=== PATIENT | male | born 1995 | race Caucasian/White ===

== ENCOUNTER 2018-03-13 15:33 | Emergency (ER) | payer OTHER, MEDICAID ==
--- NOTE | 2018-03-13 17:16 | ER Document Report ---
ED Medical Screen (RME) - General Chief Complaint: Abdominal Pain Stated Complaint: ABDOMINAL PAIN Time Seen by Provider: 03/13/18 16:24 TRAVEL OUTSIDE OF THE [place] IN LAST 30 DAYS: No - Related Data Allergies/Adverse Reactions: No Known Allergies Allergy (Verified 03/13/18 16:21) Past Medical History - Social History Chew tobacco use (# tins/day): No Frequency of alcohol use: None Drug Abuse: None - Past Medical History Cardiac Medical History: Denies: Hx Coronary Artery Disease, Hx Heart Attack, Hx Hypertension Pulmonary Medical History: Reports: Hx Asthma - inhalers if needed Denies: Hx Bronchitis, Hx COPD, Hx Pneumonia Neurological Medical History: Denies: Hx Cerebrovascular Accident, Hx Seizures Renal/ Medical History: Denies: Hx Peritoneal Dialysis Musculoskeltal Medical History: Denies Hx Arthritis Past Surgical History: Reports: Hx Orthopedic Surgery - Immunizations Immunizations up to date: Yes Hx Diphtheria, Pertussis, Tetanus Vaccination: Yes Physical Exam - Vital signs Vitals: Pulse Resp BP Pulse Ox 84 22 H 134/97 H 98 03/13/18 15:43 03/13/18 15:43 03/13/18 15:43 03/13/18 15:43 Course - Re-evaluation Re-evalutation: 03/13/18 19:20 23-year-old man with profound delay as a result of cerebral palsy as a child. Plan for this child to undergo CT imaging of the abdomen and pelvis as he does have tenderness in the right lower quadrant suggestive of potential appendicitis. I have seen and performed a rapid medical screening examination on this patient. This patient will require further evaluation and disposition determination by a secondary provider. - Vital Signs Vital signs: Temp Pulse Resp BP Pulse Ox 84 22 H 134/97 H 98 03/13/18 15:43 03/13/18 15:43 03/13/18 15:43 03/13/18 15:43 - Laboratory Result Diagrams: 03/13/18 17:05 03/13/18 17:05 Laboratory results interpreted by me: 03/13/18 17:05 Sodium 145.3 H Potassium 5.4 H Carbon Dioxide 32 H Total Protein 8.3 H Doctor's Discharge - Discharge Referrals: CHANDANA NGO MD [Primary Care Provider] - Follow up as needed
[2018-03-13 17:34] LABS: ABSOLUTE EOSINOPHILS # (AUTO) 0.3 10^3/uL (0.0-0.6); ABSOLUTE LYMPHOCYTES (AUTO) 1.7 10^3/uL (0.5-4.7); ABSOLUTE MONOCYTES (AUTO) 0.8 10^3/uL (0.1-1.4); ABSOLUTE NEUT (AUTO) 4.9 10^3/uL (1.7-8.2); BASOPHILS % (AUTO) 0.3 % (0-2); EOSINOPHILS % (AUTO) 3.9 % (0-6); HEMATOCRIT 43.8 % (37.9-51.0); HEMOGLOBIN 15.1 g/dL (13.5-17.0); LYMPHOCYTES % (AUTO) 22.5 % (13-45); MEAN CORPUSCULAR HEMOGLOBIN 31.1 pg (27.0-33.4); MEAN CORPUSCULAR HGB CONC 34.5 g/dL (32.0-36.0); MEAN CORPUSCULAR VOLUME 90 fl (80-97); MONOCYTES % (AUTO) 10.6 % (3-13); PLATELET COUNT 240 10^3/uL (150-450); RED BLOOD COUNT 4.85 10^6/uL (4.35-5.55); RED CELL DISTRIBUTION WIDTH 12.7 % (11.5-14.0); SEGMENTED NEUTROPHILS % (AUTO) 62.7 % (42-78); TOTAL CELLS COUNTED % (AUTO) 100 %; WHITE BLOOD COUNT 7.8 10^3/uL (4.0-10.5)
[2018-03-13 17:56] LABS: ALANINE AMINOTRANSFERASE 27 U/L (21-72); ALBUMIN 4.8 g/dL (3.5-5.0); ALKALINE PHOSPHATASE 88 U/L (38-126); ANION GAP 13 (5-19); ASPARTATE AMINO TRANSFERASE 29 U/L (17-59); BILIRUBIN,DIRECT 0.3 mg/dL (0.0-0.4); BILIRUBIN,TOTAL 0.6 mg/dL (0.2-1.3); BLOOD UREA NITROGEN 15 mg/dL (7-20); CALCIUM 10.1 mg/dL (8.4-10.2); CARBON DIOXIDE 32 mmol/L (22-30); CHLORIDE 100 mmol/L (98-107); GLUCOSE 90 mg/dL (75-110); LIPASE 49.9 U/L (23-300); POTASSIUM 5.4 mmol/L (3.6-5.0); SODIUM 145.3 mmol/L (137-145); TOTAL PROTEIN 8.3 g/dL (6.3-8.2)
[2018-03-13] MEDS ORDERED: DIAZEPAM INJ 10 MG/2 ML DISP.SYRIN IV ONE (19:08)
--- NOTE | 2018-03-13 19:47 | RADIOLOGY REPORT (SQ) ---
EXAM DESCRIPTION: CT ABD/PELVIS WITH IV ORAL COMPLETED DATE/TIME: 03/13/2018 7:30 pm REASON FOR STUDY: concern for appendicitis COMPARISON: None. TECHNIQUE: CT scan of the abdomen and pelvis performed using helical scanning technique with dynamic intravenous contrast injection. No oral contrast. Images reviewed with lung, soft tissue, and bone windows. Reconstructed coronal and sagittal MPR images reviewed. Delayed images for evaluation of the urinary system also acquired. All images stored on PACS. All CT scanners at this facility use dose modulation, iterative reconstruction, and/or weight based d osing when appropriate to reduce radiation dose to as low as reasonably achievable (ALARA). [facility]: Dose Right [facility]: CareDose [facility]: Dose Right [facility]: Teradose 4D [facility]: [employer] CONTRAST TYPE AND DOSE: contrast/concentration: Isovue 350.00 mg/ml; Total Contrast Delivered: 61.0 ml; Total Saline Delivered: 65.0 ml RENAL FUNCTION: BUN 15; creatinine 0.62 RADIATION DOSE: CT Rad equipment meets quality standard of care and radiation dose reduction techniq ues were employed. CTDIvol: 5.9 - 7.9 mGy. DLP: 812 mGy-cm.. LIMITATIONS: Patient motion artifact and overlapping extremities. FINDINGS: LOWER CHEST: No significant findings. No nodules or infiltrates. LIVER: Normal size. No masses. No dilated ducts. SPLEEN: Normal size. No focal lesions. PANCREAS: No masses. No significant calcifications. No adjacent inflammation or peripancreatic fluid collections. Pancreatic duct not dilated. GALLBLADDER: No identified stones by CT criteria. No inflammatory changes to suggest cholecystitis. ADRENAL GLANDS: No significant masses or asymmetry. RIGHT KIDNEY AND URETER: No solid masses. Nonobstructing nephroliths are present. No hydronephros is or hydroureter. LEFT KIDNEY AND URETER: No solid masses. Nonobstructing nephroliths are present. No hydronephrosi s or hydroureter. AORTA AND VESSELS: No aneurysm. No dissection. Renal arteries, SMA, celiac without stenosis. RETROPERITONEUM: No retroperitoneal adenopathy, hemorrhage or masses. BOWEL AND PERITONEAL CAVITY: No masses or inflammatory changes. No free fluid or peritoneal masses. APPENDIX: Not visualized. PELVIS: No mass. No free fluid. Normal bladder. ABDOMINAL WALL: No masses. No hernias. BONES: No significant or acute findings. OTHER: ORIF of the hips. Diffusely diminished mineralization. IMPRESSION: Examination limited by patient motion and beam hardening artifact from overlapping extre mities. While the appendix is not discretely identified, no pericecal inflammatory changes are demon strated to suggest a developing appendicitis. TECHNICAL DOCUMENTATION: JOB ID: [id number] Quality ID # [id number]: Final reports with documentation of one or more dose reduction techniques (e.g., Au tomated exposure control, adjustment of the mA and/or kV according to patient size, use of iterative reconstruction technique) 2010 [employer]- All Rights Reserved Reading location - IP/workstation name: [email or web address]
--- NOTE | 2018-03-13 20:47 | ER Document Report ---
ED General - General Chief Complaint: Abdominal Pain Stated Complaint: ABDOMINAL PAIN Time Seen by Provider: 03/13/18 16:24 Mode of Arrival: Wheelchair Information source: Patient, Parent Notes: This is a 23-year-old man with cerebral palsy that is brought in to the emergency room because of some abdominal pain. Patient's family states he ate a lot of food last night and started to have some discomfort today which is persisted. They report some nausea without vomiting. The patient is able to communicate and will answer yes or no questions. He is currently on no medicines. TRAVEL OUTSIDE OF THE [place] IN LAST 30 DAYS: No - HPI Onset: This morning Onset/Duration: Gradual Quality of pain: Dull Severity: Mild Pain Level: 1 Associated symptoms: denies: Chest pain, Fever, Nausea, Vomiting, Shortness of breath Exacerbated by: Denies Relieved by: Denies Similar symptoms previously: No Recently seen / treated by doctor: No - Related Data Allergies/Adverse Reactions: No Known Allergies Allergy (Verified 03/13/18 16:21) Past Medical History - General Information source: Patient - Social History Smoking Status: Never Smoker Cigarette use (# per day): No Chew tobacco use (# tins/day): No Frequency of alcohol use: None Drug Abuse: None Lives with: Family Family History: Reviewed & Not Pertinent Patient has suicidal ideation: No Patient has homicidal ideation: No - Past Medical History Cardiac Medical History: Denies: Hx Coronary Artery Disease, Hx Heart Attack, Hx Hypertension Pulmonary Medical History: Reports: Hx Asthma - inhalers if needed Denies: Hx Bronchitis, Hx COPD, Hx Pneumonia Neurological Medical History: Denies: Hx Cerebrovascular Accident, Hx Seizures Renal/ Medical History: Denies: Hx Peritoneal Dialysis Musculoskeletal Medical History: Denies Hx Arthritis Past Surgical History: Reports: Hx Orthopedic Surgery - Immunizations Immunizations up to date: Yes Hx Diphtheria, Pertussis, Tetanus Vaccination: Yes Review of Systems - Review of Systems Constitutional: denies: Chills, Fever EENT: No symptoms reported Cardiovascular: No symptoms reported Respiratory: No symptoms reported Gastrointestinal: See HPI Genitourinary: No symptoms reported Male Genitourinary: No symptoms reported Musculoskeletal: No symptoms reported Skin: No symptoms reported Hematologic/Lymphatic: No symptoms reported Neurological/Psychological: No symptoms reported Physical Exam - Vital signs Vitals: Pulse Resp BP Pulse Ox 84 22 H 134/97 H 98 03/13/18 15:43 03/13/18 15:43 03/13/18 15:43 03/13/18 15:43 Notes: Physical exam: GENERAL: Patient is sitting in wheelchair, he is smiling, no distress. He does answer yes or no questions. He denies pain at this time. HEAD: Atraumatic, normocephalic. EYES: Pupils equal round and reactive to light, extraocular movements intact, sclera anicteric, conjunctiva are normal. ENT: TMs normal, nares patent, oropharynx clear without exudates. Moist mucous membranes. NECK: Normal range of motion, supple without obvious mass or JVD. LUNGS: Breath sounds clear to auscultation bilaterally and equal. No wheezes rales or rhonchi. HEART: Regular rate and rhythm without murmurs, rubs or gallops. ABDOMEN: Soft, normoactive bowel sounds. No tenderness to palpation. No guarding, no rebound. No masses appreciated. Testes x2, nontender, no swelling. EXTREMITIES: Normal range of motion, no pitting or edema. No clubbing or cyanosis. NEUROLOGICAL: Cranial nerves II through XII grossly intact. Normal speech, moving all extremities. PSYCH: Normal mood, normal affect. SKIN: Warm, Dry, normal turgor, no rashes or lesions noted. Course - Vital Signs Vital signs: Temp Pulse Resp BP Pulse Ox 106 H 16 119/71 97 03/13/18 20:54 03/13/18 20:54 03/13/18 20:54 03/13/18 20:54 - Laboratory Result Diagrams: 03/13/18 17:05 03/13/18 17:05 Laboratory results interpreted by me: 03/13/18 17:05 Sodium 145.3 H Potassium 5.4 H Carbon Dioxide 32 H Total Protein 8.3 H Discharge - Discharge Clinical Impression: Abdominal pain Condition: Stable Disposition: HOME, SELF-CARE Instructions: Abdominal Pain ([facility]) Additional Instructions: As we discussed, the CT scan of the abdomen showed no inflammation over the area of the appendix. This is good. Let us do this the blood work looked good and the white count was normal. The plan at this point would be to just take it easy over the next few days: Watch and wait. I would follow-up with Dr. Ngo: Bring a copy of today's labs and CT report with you when you go. Return to the emergency room for fever (temperature greater than 100.5), worsening pain or concerns that Rell looks worse. In this case, he will need to be reassessed. Referrals: CHANDANA NGO MD [Primary Care Provider] - Follow up in 3-5 days
[2018-03-13 21:11] VITALS: BP 119/71
== END 2018-03-13 21:10 | disposition home or self-care (01) ==
LOC: ER 15:33
DX: R10.9 Unspecified abdominal pain (principal)
CPT/HCPCS: 99284; 96374; 36415; 83690; 85025; 80053; 74177; J3360

== ENCOUNTER 2018-03-15 14:41 | Emergency (ER) | payer OTHER, MEDICAID ==
[2018-03-15] MEDS ORDERED: DICYCLOMINE HCL INJ 20 MG/2 ML AMPULE IM ONE (15:43)
--- NOTE | 2018-03-15 15:45 | ER Document Report ---
ED Medical Screen (RME) - General Chief Complaint: Flank Pain Stated Complaint: PAIN IN RIGHT SIDE Time Seen by Provider: 03/15/18 15:42 Notes: 23 years old male with cerebral palsy was brought in today again. He was here 2 days ago. He is continuously having pain over the right lower quadrant. He had a CAT scan done Monday with no acute finding. He did not have any fever chills or other constitutional symptoms. No nausea vomiting. On examination-palpable stools all along the right side of the abdomen as well as left lower quadrant. TRAVEL OUTSIDE OF THE [place] IN LAST 30 DAYS: No - Related Data Allergies/Adverse Reactions: No Known Allergies Allergy (Verified 03/15/18 14:45) Past Medical History - Social History Chew tobacco use (# tins/day): No Frequency of alcohol use: None Drug Abuse: None - Past Medical History Cardiac Medical History: Denies: Hx Coronary Artery Disease, Hx Heart Attack, Hx Hypertension Pulmonary Medical History: Reports: Hx Asthma - inhalers if needed Denies: Hx Bronchitis, Hx COPD, Hx Pneumonia Neurological Medical History: Denies: Hx Cerebrovascular Accident, Hx Seizures Renal/ Medical History: Denies: Hx Peritoneal Dialysis Musculoskeltal Medical History: Denies Hx Arthritis Past Surgical History: Reports: Hx Orthopedic Surgery - Immunizations Immunizations up to date: Yes Hx Diphtheria, Pertussis, Tetanus Vaccination: Yes Physical Exam - Vital signs Vitals: Temp Pulse Resp BP Pulse Ox 97.6 F 84 20 146/107 H 99 03/15/18 15:12 03/15/18 15:12 03/15/18 15:12 03/15/18 15:12 03/15/18 15:12 Course - Vital Signs Vital signs: Temp Pulse Resp BP Pulse Ox 97.6 F 84 20 146/107 H 99 03/15/18 15:12 03/15/18 15:12 03/15/18 15:12 03/15/18 15:12 03/15/18 15:12 Doctor's Discharge - Discharge Referrals: CHANDANA NGO MD [Primary Care Provider] - Follow up as needed
--- NOTE | 2018-03-15 16:10 | RADIOLOGY REPORT (SQ) ---
EXAM DESCRIPTION: KUB/ABDOMEN (SINGLE VIEW) COMPLETED DATE/TIME: 03/15/2018 4:01 pm REASON FOR STUDY: Abdominal pain COMPARISON: None. NUMBER OF VIEWS: One view. TECHNIQUE: Supine radiographic image of the abdomen acquired. LIMITATIONS: None. FINDINGS: BOWEL GAS PATTERN: Considerable bowel gas is present. There is predominantly in the large bowel. The overall appearance does not suggest bowel obstruction. CALCIFICATIONS: No suspicious calcifications. SOFT TISSUES: No gross mass or suggestion of organomegaly. HARDWARE: None in the abdomen. BONES: Scoliosis. Prior ORIF right hip. OTHER: No other significant finding. IMPRESSION: NO RADIOGRAPHIC EVIDENCE FOR ACUTE ABDOMINAL DISEASE. TECHNICAL DOCUMENTATION: JOB ID: [id number] [employer]- All Rights Reserved Reading location - IP/workstation name: [email or web address]
[2018-03-15 16:41] LABS: ABSOLUTE EOSINOPHILS # (AUTO) 0.4 10^3/uL (0.0-0.6); ABSOLUTE LYMPHOCYTES (AUTO) 1.7 10^3/uL (0.5-4.7); ABSOLUTE MONOCYTES (AUTO) 0.7 10^3/uL (0.1-1.4); ABSOLUTE NEUT (AUTO) 4.1 10^3/uL (1.7-8.2); BASOPHILS % (AUTO) 0.7 % (0-2); EOSINOPHILS % (AUTO) 5.5 % (0-6); HEMATOCRIT 43.4 % (37.9-51.0); LYMPHOCYTES % (AUTO) 24.9 % (13-45); MEAN CORPUSCULAR HEMOGLOBIN 30.9 pg (27.0-33.4); MEAN CORPUSCULAR HGB CONC 34.6 g/dL (32.0-36.0); MEAN CORPUSCULAR VOLUME 89 fl (80-97); MONOCYTES % (AUTO) 10.2 % (3-13); PLATELET COUNT 242 10^3/uL (150-450); RED BLOOD COUNT 4.86 10^6/uL (4.35-5.55); RED CELL DISTRIBUTION WIDTH 12.8 % (11.5-14.0); SEGMENTED NEUTROPHILS % (AUTO) 58.7 % (42-78); TOTAL CELLS COUNTED % (AUTO) 100 %; WHITE BLOOD COUNT 6.9 10^3/uL (4.0-10.5)
[2018-03-15] MEDS ORDERED: MINERAL OIL ENEMA 133 ML PR ONE (17:56)
[2018-03-15 20:34] LABS: AMORPHOUS SEDIMENT,URINE 1+ /HPF; APPEARANCE,URINE CLOUDY; BILIRUBIN,URINE NEGATIVE (NEGATIVE); COLOR,URINE YELLOW; GLUCOSE, URINE NEGATIVE (NEGATIVE); KETONES,URINE NEGATIVE (NEGATIVE); LEUKOCYTE ESTERASE,URINE TRACE (NEGATIVE); NITRITE,URINE NEGATIVE (NEGATIVE); PROTEIN,URINE NEGATIVE (NEGATIVE); URINE SPECIFIC GRAVITY 1.018; UROBILINOGEN,URINE NEGATIVE mg/dL (<2.0)
[2018-03-15] MEDS ORDERED: MAGNESIUM CITRATE 296 ML BOTTLE PO ONE ×2 (20:46→20:54)
--- NOTE | 2018-03-15 20:54 | ER Document Report ---
ED General - General Chief Complaint: Flank Pain Stated Complaint: PAIN IN RIGHT SIDE Time Seen by Provider: 03/15/18 15:42 Mode of Arrival: Wheelchair Information source: Parent TRAVEL OUTSIDE OF THE [place] IN LAST 30 DAYS: No - HPI Patient complains to provider of: abdominal pain Onset: Other - 23-year-old man with serious developmental delay as a result of cerebral palsy that presents for evaluation of persistent abdominal pain having previously been evaluated for potential appendicitis with a negative CT of the abdomen at that time who has had loose bowel movements since that time without appreciable fevers or chills or obvious nausea. - Related Data Allergies/Adverse Reactions: No Known Allergies Allergy (Verified 03/15/18 14:45) Past Medical History - General Information source: Parent - Social History Smoking Status: Never Smoker Chew tobacco use (# tins/day): No Frequency of alcohol use: None Drug Abuse: None Family History: Reviewed & Not Pertinent Patient has suicidal ideation: No Patient has homicidal ideation: No - Past Medical History Cardiac Medical History: Denies: Hx Coronary Artery Disease, Hx Heart Attack, Hx Hypertension Pulmonary Medical History: Reports: Hx Asthma - inhalers if needed Denies: Hx Bronchitis, Hx COPD, Hx Pneumonia Neurological Medical History: Denies: Hx Cerebrovascular Accident, Hx Seizures Renal/ Medical History: Denies: Hx Peritoneal Dialysis Musculoskeletal Medical History: Denies Hx Arthritis Past Surgical History: Reports: Hx Orthopedic Surgery - Immunizations Immunizations up to date: Yes Hx Diphtheria, Pertussis, Tetanus Vaccination: Yes Review of Systems - Review of Systems -: Yes All other systems reviewed and negative Physical Exam - Vital signs Vitals: Temp Pulse Resp BP Pulse Ox 97.6 F 84 20 146/107 H 99 03/15/18 15:12 03/15/18 15:12 03/15/18 15:12 03/15/18 15:12 03/15/18 15:12 - General General appearance: Anxious, Lethargic - HEENT Head: Normocephalic Eyes: Normal Conjunctiva: Normal Cornea: Normal Extraocular movements intact: Yes Eyelashes: Normal Pupils: PERRL - Respiratory Respiratory status: No respiratory distress Chest status: Nontender Breath sounds: Normal Chest palpation: Normal - Cardiovascular Rhythm: Regular Heart sounds: Normal auscultation Murmur: No - Abdominal Inspection: Other - small g tube in place LUQ Distension: No distension Bowel sounds: Hypoactive Tenderness: Nontender Organomegaly: No organomegaly - Back Back: Normal, Nontender - Extremities General upper extremity: Other - Contracted upper extremities General lower extremity: Other. No: Anna Marie's sign - Neurological Neuro grossly intact: No Orientation: Disoriented to person, Disoriented to events [place] Coma Scale Eye Opening: Spontaneous [place] Coma Scale Verbal: Incomprehensible [place] Coma Scale Motor: Localizes to Pain [place] Coma Scale Total: 11 Speech: Other - Probable length - Psychological Associated symptoms: Confused Course - Re-evaluation Re-evalutation: 03/16/18 03:24 This 23-year-old male who presents for evaluation of abdominal pain. Through triage she had labs drawn and x-ray done in comparison to the CT he had earlier this week there is symptoms to suggest that he does have constipation at this time*multiple fecaliths appreciable in the descending colon. Patient had a enema ordered through pit, he also had fluids administered through pit. Following administration of enema the patient only had moderate stool output. We will plan for administration of a repeat enema as well as magnesium citrate. Following second enema patient did pass a large amount of stool there is hard to copious stool appreciable at the top of enema. Spoke to the parents about the importance of an aggressive bowel regimen utilizing MiraLAX to soften stool and encourage passage, there will use magnesium citrate as needed. They will return in case of any fevers or chills if he begins to have vomiting or any other symptoms. His labs are otherwise reassuring with a normal chemistry normal count. - Vital Signs Vital signs: Temp Pulse Resp BP Pulse Ox 97.6 F 84 20 146/107 H 99 03/15/18 15:12 03/15/18 15:12 03/15/18 15:12 03/15/18 15:12 03/15/18 15:12 - Laboratory Result Diagrams: 03/15/18 16:24 Laboratory results interpreted by me: 03/15/18 18:35 Ur Leukocyte Esterase TRACE H Urine Ascorbic Acid 40 H Discharge - Discharge Clinical Impression: Constipated Qualifiers: Constipation type: unspecified constipation type Qualified Code(s): K59.00 - Constipation, unspecified Abdominal pain Qualifiers: Abdominal location: unspecified location Qualified Code(s): R10.9 - Unspecified abdominal pain Urinary tract infection Qualifiers: Urinary tract infection type: site unspecified Hematuria presence: without hematuria Qualified Code(s): N39.0 - Urinary tract infection, site not specified Condition: Good Disposition: HOME, SELF-CARE Instructions: Abdominal Pain ([facility]), Urinary Tract Infection ([facility]), Cephalexin ( [facility]) Additional Instructions: Your seen today in the emergency department for your child's constipation and abdominal pain. He had an examination including a physical exam blood work and a x-ray of the abdomen. He was given 2 enemas as well as a laxative in the emergency department. You should use MiraLAX 2 times a day for the next week, if he does not have any formed bowel movements in the next day use a bottle of the laxative prescribed to you, start with one half of the bottle if he does not have any bowel movements within 2 hours thereafter finished the bottle of laxative. Return for worsening fevers or chills worsening pain or other symptoms. Prescriptions: Cephalexin Monohydrate [Keflex 250 mg/5 ml Susp 100 ml] 500 mg PO QID 10 Days # 400 ml Magnesium Citrate 296 ml PO ONCE PRN #1 solution PRN Reason: Polyethylene Glycol 3350 [Miralax] 34 gm PO BID PRN #3 powder PRN Reason: For Constipation Referrals: CHANDANA NGO MD [Primary Care Provider] - Follow up as needed
[2018-03-15 23:30] VITALS: BP 99/64
== END 2018-03-15 23:39 | disposition home or self-care (01) ==
LOC: ER 14:41
DX: K59.00 Constipation, unspecified (principal); N39.0 Urinary tract infection, site not specified; R10.9 Unspecified abdominal pain; G80.9 Cerebral palsy, unspecified; J45.909 Unspecified asthma, uncomplicated
CPT/HCPCS: 99284; 96372; 51701; 36415; 85025; 81001; 74018; J3490 ×2; J0500